=== PATIENT | female | born 2000 | race Caucasian/White ===

== ENCOUNTER 2019-03-09 14:39 | Emergency (ER) | payer OTHER, SELFPAY ==
[2019-03-09 14:54] VITALS: BP 113/75; PULSE 75; RESP 16; TEMP 36.8; O2SAT 99
[2019-03-09] MEDS: ACETAMINOPHEN 325 MG TABLET 975 MG PO (15:42)
[2019-03-09] MEDS: IBUPROFEN 400 MG TABLET 800 MG PO (15:42)
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
[2019-03-09 17:01] VITALS: BP 98/65; PULSE 62; RESP 16
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
== END 2019-03-09 17:01 | disposition home or self-care (01) ==
PROVIDERS: Emergency Provider Nurse Practitioner Family; PCP Pediatrics
DX: M54.5 Low back pain (principal); M54.2 Cervicalgia; V89.2XXA Person injured in unspecified motor-vehicle accident, traffic, initial encounter
CPT/HCPCS: 72070; 72100; 99283; 99284

== ENCOUNTER → 2022-06-11 13:07 | Outpatient (CLI) | payer OTHER, SELFPAY ==
[2022-06-11 20:11] LABS: Urine N gonorrhoeae NOT DETECTED
[2022-06-11 20:13] LABS: Urine Chlamydia NOT DETECTED
== END ==
PROVIDERS: Visit Provider Family Medicine
DX: Z11.3 Encounter for screening for infections with a predominantly sexual mode of transmission (principal); Z11.8 Encounter for screening for other infectious and parasitic diseases; Z36.9 Encounter for antenatal screening, unspecified; Z3A.08 8 weeks gestation of pregnancy
CPT/HCPCS: 87491; 87591

== ENCOUNTER → 2022-07-16 11:49 | Outpatient (CLI) | payer OTHER, SELFPAY ==
[2022-07-16 12:19] LABS: Add Manual Diff / Slide Review NO; Basophils Absolute Auto 0 /uL (0-100); Basophils Percent Auto 0.4 % (0-2); Eosinophils Absolute Auto 100 /uL (0-450); Eosinophils Percent Auto 0.6 % (2-4); Hematocrit 34.7 % (36-46); Hemoglobin 12.1 g/dL (12.0-16.0); Lymphocytes Absolute Auto 1800 /uL (1100-4500); Lymphocytes Percent Auto 20.4 % (25-40); Mean Corpuscular HGB Conc 34.9 % (30-36); Mean Corpuscular Hemoglobin 30.6 PG (26-34); Mean Corpuscular Volume 87.6 fL (80-100); Monocytes Absolute Auto 500 /uL (0-900); Monocytes Percent Auto 5.6 % (3-14); Neutrophils Absolute Auto 6500 /uL (1500-7000); Platelet Count 246 X10^3/uL (150-400); Red Blood Cell Count 3.96 X10^6/uL (4.0-5.2); Red Cell Distribution Width 13.3 % (11.6-14.8); White Blood Cell Count 8.9 X10^3/uL (4.5-11.0)
[2022-07-16 13:16] LABS: Hepatitis B Surface Antigen NEGATIVE s/c (NEGATIVE); Rubella Antibody IgG 11.3 IU/mL (>15)
[2022-07-16 13:33] LABS: HIV 1 & 2 Ab/Ag 4th Gen Combo NEGATIVE (NEGATIVE); Hep C Virus Ab w/Reflex Quant NEGATIVE s/c (NEGATIVE)
[2022-07-16 13:55] LABS: Appearance Urine UA CLEAR; Bilirubin Urine UA NEGATIVE (NEGATIVE); Color Urine UA YELLOW; Glucose Urine UA NEGATIVE (Negative); Ketones Urine UA NEGATIVE (NEGATIVE); Leukocyte Esterase Urine UA NEGATIVE (NEGATIVE); Nitrite Urine UA NEGATIVE (Negative); Occult Blood Urine UA NEGATIVE (Negative); Protein Urine UA NEGATIVE (Negative); Specific Gravity Urine UA <=1.005 (1.000-1.035); Urobilinogen Urine UA 0.2 E.U./dL (0.2)
[2022-07-16 13:57] LABS: pH Urine UA 5.5 (4.5-8.0)
[2022-07-17 05:53] LABS: RPR Screen Non Reactive (Non Reactive)
[2022-07-17 08:13] LABS: Varicella IgG Antibody 509 index (Immune >165)
== END ==
PROVIDERS: Referring Provider Family Medicine; Visit Provider Family Medicine
DX: Z34.81 Encounter for supervision of other normal pregnancy, first trimester (principal); Z34.01 Encounter for supervision of normal first pregnancy, first trimester; Z87.730 Personal history of (corrected) cleft lip and palate; Z3A.10 10 weeks gestation of pregnancy
CPT/HCPCS: 36415; 80055; 81003; 86787; 86803; 86850; 86900; 86901; 87086; 87389

== ENCOUNTER 2022-08-14 07:46 | Emergency (ER) | payer OTHER, SELFPAY ==
[2022-08-14 07:50] VITALS: BP 106/51; PULSE 70; RESP 16; TEMP 36.8; O2SAT 100; BMI 27.1
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
== END 2022-08-14 08:28 | disposition home or self-care (01) ==
PROVIDERS: Emergency Provider Emergency Medicine
DX: O26.92 Pregnancy related conditions, unspecified, second trimester (principal); H72.92 Unspecified perforation of tympanic membrane, left ear; Z3A.18 18 weeks gestation of pregnancy
CPT/HCPCS: 81003; 99281; 99282

== ENCOUNTER → 2022-09-02 14:17 | Outpatient (CLI) | payer OTHER, SELFPAY ==
--- NOTE | 2022-09-02 14:18 | DI.US.S_ITS ---
PROCEDURE: US OB >= 14 WEEKS FETUS INDICATIONS: 20 week anatomy OUTSIDE/PRIOR DATING DATA: Last menstrual period (LMP): April 08, 2022. LMP-based estimated date of delivery ([place]): January 13, 2023. First dating scan (date and location): June 11, 2022. Estimated date of delivery ([place]) from first dating scan: January 19, 2023. The calculations are made using the ultrasound ALY of January 19, 2023. TECHNIQUE: Real-time scanning was performed of the fetus, with image documentation and biometric measurements. Endovaginal scanning: Not performed COMPARISON: None. FINDINGS: General: A single living intrauterine gestation is present. Presentation: Vertex. Placenta: Placental position is anterior , without previa. Amniotic fluid index: 14.4 cm, normal range is 5-24 cm. Single deepest vertical pocket is 4.3 cm. heart rate: 145 beats per minute. Maternal cervical canal: 4.7 cm long. Normal lower limit is 2.5 cm. biometrics: Biparietal diameter: 4.9 cm, 20 weeks and 5 days Head circumference: 18.2 cm, 20 weeks and 4 days Abdominal circumference: 15.6 cm, 20 weeks and 5 days Femur length: 3.2 cm, 20 weeks and 0 days Clinically estimated gestational age: Not calculated Composite gestational age from present scan: 20 weeks and 4 days Estimated weight and percentile: 355 g which correlates with the 64th percentile Anatomic survey: Neuro: Ventricles are non-dilated at less than 10 mm. Cisterna magna is normal at 3-11 mm. Cerebellum is normal in size and morphology. Nuchal skin fold: Normal at less than 6 mm between 14-21 weeks gestational age. Face: Nose and lips, facial profile are normal. Spine: No evidence for spina bifida. Heart: 4-chambered heart is present, with normal ventricular outflow tracts. Diaphragm: Diaphragm is intact. Stomach: Left-sided stomach is present. Kidneys: No hydronephrosis. Normal is less than 5 mm in 2nd trimester, less than 7 mm in 3rd trimester. Cord: 3-vessel cord has orthotopic insertion. Bladder: Normal in size. Extremities: All 4 extremities identified. IMPRESSION: Single living intrauterine gestation with estimated sonographic gestational age of approximately 20 weeks and 4 days. Normal interval growth has occurred. Estimated weight of approximately 355 g which correlates with the 64th percentile based off gestational age. Normal second-trimester anatomy screening survey. We strive to produce accurate, complete, and clear reports of imaging services. To assist us in improving patient care, this report was composed using standard report templates and voice recognition software. Therefore, it may contain abnormal punctuation, insertions and/or omissions. Occasional wrong-word or sound-alike substitutions may occur. Though we review the report and make efforts to correct it, we do recommend that the report be read carefully in proper context to recognize any text inaccuracies. Dictated by: Waqas Stinson M.D. on 09/02/2022 at 16:33 Approved by: Waqas Stinson M.D. on 09/02/2022 at 16:37
== END ==
PROVIDERS: Referring Provider Family Medicine; Visit Provider Family Medicine
DX: Z34.02 Encounter for supervision of normal first pregnancy, second trimester (principal); Z3A.20 20 weeks gestation of pregnancy
CPT/HCPCS: 76801; 76811

== ENCOUNTER → 2022-10-31 10:35 | Outpatient (CLI) | payer OTHER, SELFPAY ==
[2022-10-31 12:26] LABS: Add Manual Diff / Slide Review NO; Basophils Absolute Auto 0 /uL (0-100); Basophils Percent Auto 0.2 % (0-2); Eosinophils Absolute Auto 0 /uL (0-450); Eosinophils Percent Auto 0.4 % (2-4); Hematocrit 27.3 % (36-46); Hemoglobin 9.7 g/dL (12.0-16.0); Lymphocytes Absolute Auto 1500 /uL (1100-4500); Lymphocytes Percent Auto 17.3 % (25-40); Mean Corpuscular HGB Conc 35.3 % (30-36); Mean Corpuscular Hemoglobin 30.1 PG (26-34); Mean Corpuscular Volume 85.1 fL (80-100); Monocytes Absolute Auto 600 /uL (0-900); Monocytes Percent Auto 6.5 % (3-14); Neutrophils Absolute Auto 6700 /uL (1500-7000); Neutrophils Percent Auto 75.6 % (50-75); Platelet Count 276 X10^3/uL (150-400); Red Blood Cell Count 3.21 X10^6/uL (4.0-5.2); Red Cell Distribution Width 12.9 % (11.6-14.8); White Blood Cell Count 8.9 X10^3/uL (4.5-11.0)
[2022-10-31 13:11] LABS: GTT (PREG) 1 Hour PP 50gm Dose 103 mg/dL (76-139)
== END ==
PROVIDERS: Referring Provider Family Medicine; Visit Provider Family Medicine
DX: Z34.01 Encounter for supervision of normal first pregnancy, first trimester (principal)
CPT/HCPCS: 36415; 82950; 85025; 86850

== ENCOUNTER 2022-11-17 16:25 | Outpatient (CLI) | payer OTHER, SELFPAY ==
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
== END 2022-11-17 17:10 | disposition home or self-care (01) ==
LOC: OB 11-19 12:50
PROVIDERS: Referring Provider Family Medicine; Visit Provider Family Medicine
DX: Z03.71 Encounter for suspected problem with amniotic cavity and membrane ruled out (principal); O26.893 Other specified pregnancy related conditions, third trimester; Z3A.31 31 weeks gestation of pregnancy; N89.8 Other specified noninflammatory disorders of vagina
CPT/HCPCS: 59025; 84112; G0378; G0379

== ENCOUNTER → 2022-12-19 12:08 | Outpatient (CLI) | payer OTHER, SELFPAY ==
[2022-12-20 11:41] LABS: Strep Grp B PCR NEG for Grp B Strep
== END ==
PROVIDERS: Visit Provider Family Medicine
DX: Z34.01 Encounter for supervision of normal first pregnancy, first trimester (principal)
CPT/HCPCS: 87653

== ENCOUNTER 2023-01-11 19:52 | Observation (INO) | payer OTHER, SELFPAY ==
[2023-01-11 20:24] VITALS: BP 123/85
[2023-01-11] MEDS: miSOPROStoL 25 MCG TABLET PO (20:54)
[2023-01-11 21:50] LABS: Add Manual Diff / Slide Review NO; Basophils Absolute Auto 0 /uL (0-100); Basophils Percent Auto 0.4 % (0-2); Eosinophils Absolute Auto 0 /uL (0-450); Eosinophils Percent Auto 0.3 % (2-4); Hematocrit 29.1 % (36-46); Hemoglobin 9.8 g/dL (12.0-16.0); Lymphocytes Absolute Auto 2000 /uL (1100-4500); Lymphocytes Percent Auto 22.9 % (25-40); Mean Corpuscular HGB Conc 33.7 % (30-36); Mean Corpuscular Hemoglobin 26.3 PG (26-34); Mean Corpuscular Volume 78.1 fL (80-100); Monocytes Absolute Auto 600 /uL (0-900); Monocytes Percent Auto 7.4 % (3-14); Neutrophils Absolute Auto 6100 /uL (1500-7000); Platelet Count 288 X10^3/uL (150-400); Red Blood Cell Count 3.72 X10^6/uL (4.0-5.2); Red Cell Distribution Width 15.8 % (11.6-14.8); White Blood Cell Count 8.8 X10^3/uL (4.5-11.0)
[2023-01-12] MEDS: miSOPROStoL 25 MCG TABLET PO (02:17)
--- NOTE | 2023-01-12 08:08 | PM.OBHP.IH.1 ---
OB HPI Date/Time Date of admission: 01/11/23 Date Patient Seen: 01/12/23 History of Present Condition Chief complaint: induction ALY Calculator Estimated Delivery Date Method Current WG Current Estimate 01/19/23 Manual 39w 0d Final ALY - AMY Other Estimates 01/13/23 LMP (Certain) 39w 6d 01/19/23 Ultrasound #1 39w 0d 01/19/23 Ultrasound #2 39w 0d Estimated Gestational Age (weeks): 39w0d : 1 Para: 0 Narrative: 22yo at 39w0d here for elective IOL. She denies any vaginal bleeding or LOF. She had some cramping overnight, but no strong contractions. She is feeling her baby move regularly. She had no complications with her . care: good care, initiated at week # (6) and pounds weight gain (24) Dating criteria OB: based on 1st trimester US only Ultrasounds: normal 1st trimester US and normal mid trimester US Obstetrical complications: none Medical complications OB: none Indications Indication for induction OB: other (elective) Preadmission Labs Last OB Lab Results: Blood Type B Positive 01/11/23 21:30 Antibody Screen Negative 01/11/23 21:30 Hematocrit 29.1 % (36-46) L 01/11/23 21:30 Hemoglobin 9.8 g/dL (12.0-16.0) L 01/11/23 21:30 Hepatitis B Surface Antigen Negative s/c (NEGATIVE) 07/16/22 11:56 Hepatitis C Antibody Negative s/c (NEGATIVE) 07/16/22 11:56 Rubella Antibody 11.3 IU/mL (>15) L 07/16/22 11:56 Varicella-Zoster IgG Antibody 509 index (Immune >165) 07/16/22 11:56 Glucose 1 Hour 103 mg/dL (76-139) 10/31/22 10:44 Group B Streptococcus (PCR) Neg for grp b strep 12/19/22 12:08 -: Urine: negative Genetic Screens: Cell-free DNA: Normal External Labs -: Urine: negative Evaluation Evaluation Baseline heart rate: 130 Variability: Moderate (11-25) monitor accelerations: Present Monitor Decelerations: Absent Status: Category l Dilation (cm): 1.5 Effacement (%): 75 Dilation: 1-2 cm Effacement: 60-70% station: -1 Position of cervix: mid Consistency: soft Elliott score: 8 PFSH Medical History Bilateral cleft of primary palate COVID (~2021) Headache Painful menstrual periods (~2010) Vision disorder Surgical History Anesthesia H/O bone graft H/O removal of cyst History of palate surgery [place] teeth extracted Family History Grandmother Hypertension Father Family estrangement Overdose Mother Facial tic Social History marital status: unmarried,living together number of children: 0 household members: significant other lives independently: Yes caregiver/support person: No housing: apartment pets and animals: Yes (dogs) education level: college occupational status: employed current occupational exposures/hazards: No special dom needs: No travel history: over 6 months ago other: Planning to move to [place] in October. seatbelt use: always helmet use: No (counseled to wear helmet when skiing) water heater temp set < 120 deg: Yes working smoke detector in home: Yes fire extinguisher in home: Yes carbon monox detector in home: Yes firearms in home: No do you feel safe at home: Yes in current or past relationships, have you been: other Smoking Status: Never smoker second hand exposure: Yes (s/o vapes) alcohol intake: former substance use type: does not use during the past year weight has: remained stable well-balanced diet: about half the time daily servings fruits/ve-4 caffeine: Yes (aware of 200mg limit) Type(s) of exercise: walking and weight lifting additional social history: Pt's S/O had initially been pressuring her to terminate the , which she never wanted to do. States that she had a long talk with him last night and that he has changed his mind and is now ready to step up and support her and the baby. They are planning to move to [place], [place] in October when he has orders to a new duty station. Meds Home Medications and Allergies Allergies Allergy/AdvReac Type Severity Reaction Status Date / Time No Known Drug Allergies Allergy Verified 01/11/23 20:30 OB Exam Resp Effort & Inspection: normal respiratory effort Auscultation: clear to auscultation bilaterally Cardio Rate: regular rate Rhythm: regular rhythm Heart Sounds: S1 normal, S2 normal and no murmurs GI Inspection: non-distended Palpation: Yes soft and No tender Presentation: vertex Estimated Weight (lbs): 7 Objective Labs 01/11/23 21:30 Labs: Laboratory Results - last 24 hr 01/11/23 21:30 WBC 8.8 RBC 3.72 L Hgb 9.8 L Hct 29.1 L MCV 78.1 L MCH 26.3 MCHC 33.7 RDW 15.8 H Plt Count 288 Neut % (Auto) 69.0 Lymph % (Auto) 22.9 L [place] % (Auto) 7.4 Eos % (Auto) 0.3 L Baso % (Auto) 0.4 Neut # (Auto) 6100 Lymph # (Auto) 2000 [place] # (Auto) 600 Eos # (Auto) 0 Baso # (Auto) 0 Blood Type B Positive Antibody Screen Negative Assessment and Plan Assessment and Plan Assessment and Plan narrative: 22yo at 39w0d here for elective IOL. GBS negative, Rh positive. No significant complications with . Received cytotec overnight x 2, third dose delayed due to staffing. Pt with cervical change, Elliott now 8. - Anticipate - Plan to start pitocin when staffing allows, titrate as tolerated - GBS negative, no prophylaxis indicated - FHT reassuring - Epidural for pain control when desired
== END 2023-01-12 14:20 | disposition home or self-care (01) ==
PROVIDERS: Admitting Provider Family Medicine; PCP Family Medicine; Visit Provider Family Medicine
DX: Z34.03 Encounter for supervision of normal first pregnancy, third trimester (principal); Z3A.39 39 weeks gestation of pregnancy
CPT/HCPCS: 36415; 59050; 59200; 85025; 86850; 86900; 86901; 96360; G0378; G0379

== ENCOUNTER 2023-01-18 20:05 | Observation (INO) | payer OTHER, SELFPAY ==
[2023-01-18 20:30] VITALS: BP 120/74
--- NOTE | 2023-01-18 20:53 | P.TNLD_ITS ---
Visit Information Visit Information Date of evaluation: 01/18/23 Primary OB Provider: Valery Garrison On-call OB Provider: Vidhi Herbert Reason for Evaluation: Yes non-stress test non-stress test reason: decreased movement Comments/Additional reasons for admission: 22YO @ 39wks 6 days here for evaluation of decreased FM and possible leaking of fluid. Has felt 4 movements in the last several hours and is worried. No cramping or vaginal bleeding. Endorces possible leaking of watery fluid when asked. Routine PN care w/ . Has her next appointment in 2 days. Vital Signs Vital Signs: Vital Signs - 8 hr 01/18/23 20:30 Blood Pressure 120/74 HR- 85bpm T- 36.2C Temporal PFSH Medical History Headache COVID (~2021) Painful menstrual periods (~2010) Bilateral cleft of primary palate Vision disorder Surgical History Anesthesia H/O bone graft [place] teeth extracted H/O removal of cyst History of palate surgery Family History Grandmother Hypertension Father Family estrangement Overdose Mother Facial tic Social History marital status: unmarried,living together number of children: 0 household members: significant other lives independently: Yes caregiver/support person: No housing: apartment pets and animals: Yes (dogs) education level: college occupational status: employed current occupational exposures/hazards: No special dom needs: No travel history: over 6 months ago other: Planning to move to [place] in October. seatbelt use: always helmet use: No (counseled to wear helmet when skiing) water heater temp set < 120 deg: Yes working smoke detector in home: Yes fire extinguisher in home: Yes carbon monox detector in home: Yes firearms in home: No do you feel safe at home: Yes in current or past relationships, have you been: other Smoking Status: Never smoker second hand exposure: Yes (s/o vapes) alcohol intake: former substance use type: does not use during the past year weight has: remained stable well-balanced diet: about half the time daily servings fruits/ve-4 caffeine: Yes (aware of 200mg limit) Type(s) of exercise: walking and weight lifting additional social history: Pt's S/O had initially been pressuring her to terminate the , which she never wanted to do. States that she had a long talk with him last night and that he has changed his mind and is now ready to step up and support her and the baby. They are planning to move to [place], [place] in October when he has orders to a new duty station. Exam Vital Signs (past 8 hours): - 01/18/23 20:30 Blood Pressure 120/74 Evaluation Evaluation Baseline heart rate: 135 Variability: Moderate (11-25) monitor accelerations: Present Monitor Decelerations: Absent Contraction Frequency (minutes): 7 Uterine Contraction Intensity: Mild (not felt by patient) Category of Tracing: Reactive Non-invasive Membranes Rupture Test: negative Diagnosis, Plan/Disposition Final Diagnosis (1) Decreased movement: Status: Acute (2) Suspected problem with amniotic cavity and membrane not found: Status: Acute Plan/Disposition Plan: Patient reassured of well-being. All concerns addressed and patient feels comfortable to return home. Follow-up with in clinic as previously scheduled. OB Disposition: home
== END 2023-01-18 20:58 | disposition home or self-care (01) ==
PROVIDERS: Admitting Provider Family Medicine; PCP Family Medicine; Referring Provider Family Medicine; Visit Provider Family Medicine
DX: Z03.71 Encounter for suspected problem with amniotic cavity and membrane ruled out (principal); O36.8130 Decreased fetal movements, third trimester, not applicable or unspecified; Z3A.39 39 weeks gestation of pregnancy
CPT/HCPCS: 59025; 84112; G0378; G0379

== ENCOUNTER 2023-01-19 10:35 | Inpatient (IN) | payer OTHER, SELFPAY ==
[2023-01-19 11:32] LABS: Add Manual Diff / Slide Review NO; Basophils Absolute Auto 100 /uL (0-100); Basophils Percent Auto 0.7 % (0-2); Eosinophils Absolute Auto 100 /uL (0-450); Eosinophils Percent Auto 0.6 % (2-4); Hemoglobin 10.6 g/dL (12.0-16.0); Lymphocytes Absolute Auto 1900 /uL (1100-4500); Lymphocytes Percent Auto 17.6 % (25-40); Mean Corpuscular HGB Conc 34.1 % (30-36); Mean Corpuscular Hemoglobin 26.4 PG (26-34); Mean Corpuscular Volume 77.6 fL (80-100); Monocytes Absolute Auto 800 /uL (0-900); Neutrophils Absolute Auto 7800 /uL (1500-7000); Neutrophils Percent Auto 73.1 % (50-75); Platelet Count 293 X10^3/uL (150-400); Red Blood Cell Count 3.99 X10^6/uL (4.0-5.2); Red Cell Distribution Width 15.5 % (11.6-14.8); White Blood Cell Count 10.6 X10^3/uL (4.5-11.0)
[2023-01-19] MEDS: OXYTOCIN PREMIX 30 UNIT/500 ML PLAST..BAG IV (12:00)
[2023-01-19 12:04] VITALS: BP 104/77
--- NOTE | 2023-01-19 13:22 | PM.OBHP.IH.1 ---
OB HPI Date/Time Date of admission: 01/19/23 Date Patient Seen: 01/19/23 History of Present Condition Chief complaint: NST ALY Calculator Estimated Delivery Date Method Current WG Current Estimate 01/19/23 Manual 40w 0d Final ALY - AMY Other Estimates 01/13/23 LMP (Certain) 40w 6d 01/19/23 Ultrasound #1 40w 0d 01/19/23 Ultrasound #2 40w 0d Estimated Gestational Age (weeks): 40w0d : 1 Para: 0 Narrative: 22yo at 40w0d here for elective IOL. She denies any vaginal bleeding or LOF. She had some cramping overnight, but no strong contractions. She is feeling her baby move regularly. She had no complications with her . care: good care, initiated at week # (6) and pounds weight gain (24) Dating criteria OB: based on 1st trimester US only Ultrasounds: normal 1st trimester US and normal mid trimester US Obstetrical complications: none Medical complications OB: none Preadmission Labs Last OB Lab Results: Blood Type B Positive 01/19/23 11:15 Antibody Screen Negative 01/19/23 11:15 Hematocrit 31.0 % (36-46) L 01/19/23 11:15 Hemoglobin 10.6 g/dL (12.0-16.0) L 01/19/23 11:15 Hepatitis B Surface Antigen Negative s/c (NEGATIVE) 07/16/22 11:56 Hepatitis C Antibody Negative s/c (NEGATIVE) 07/16/22 11:56 Rubella Antibody 11.3 IU/mL (>15) L 07/16/22 11:56 Varicella-Zoster IgG Antibody 509 index (Immune >165) 07/16/22 11:56 Glucose 1 Hour 103 mg/dL (76-139) 10/31/22 10:44 Group B Streptococcus (PCR) Neg for grp b strep 12/19/22 12:08 -: Urine: negative Genetic Screens: Cell-free DNA: Normal External Labs -: Urine: negative Evaluation Evaluation Baseline heart rate: 130 Variability: Moderate (11-25) monitor accelerations: Present Monitor Decelerations: Absent Contraction Frequency (minutes): 4 Status: Category l Dilation (cm): 2 Effacement (%): 80 Dilation: 1-2 cm Effacement: >/=80% station: -2 Position of cervix: mid Consistency: soft Elliott score: 8 PFSH Medical History Headache COVID (~2021) Painful menstrual periods (~2010) Bilateral cleft of primary palate Vision disorder Surgical History Anesthesia H/O bone graft [place] teeth extracted H/O removal of cyst History of palate surgery Family History Grandmother Hypertension Father Family estrangement Overdose Mother Facial tic Social History marital status: unmarried,living together number of children: 0 household members: significant other lives independently: Yes caregiver/support person: No housing: apartment pets and animals: Yes (dogs) education level: college occupational status: employed current occupational exposures/hazards: No special dom needs: No travel history: over 6 months ago other: Planning to move to [place] in October. seatbelt use: always helmet use: No (counseled to wear helmet when skiing) water heater temp set < 120 deg: Yes working smoke detector in home: Yes fire extinguisher in home: Yes carbon monox detector in home: Yes firearms in home: No do you feel safe at home: Yes in current or past relationships, have you been: other Smoking Status: Never smoker second hand exposure: Yes (s/o vapes) alcohol intake: former substance use type: does not use during the past year weight has: remained stable well-balanced diet: about half the time daily servings fruits/ve-4 caffeine: Yes (aware of 200mg limit) Type(s) of exercise: walking and weight lifting additional social history: Pt's S/O had initially been pressuring her to terminate the , which she never wanted to do. States that she had a long talk with him last night and that he has changed his mind and is now ready to step up and support her and the baby. They are planning to move to [place], [place] in October when he has orders to a new duty station. Meds Home Medications and Allergies Home Medications Medication Instructions Recorded Confirmed Type No Known Home Medications 01/19/23 01/19/23 History Allergies Allergy/AdvReac Type Severity Reaction Status Date / Time No Known Drug Allergies Allergy Verified 01/11/23 20:30 OB Exam Resp Effort & Inspection: normal respiratory effort Auscultation: clear to auscultation bilaterally Cardio Rate: regular rate Rhythm: regular rhythm Heart Sounds: S1 normal, S2 normal and no murmurs GI Inspection: non-distended Palpation: Yes soft and No tender Presentation: vertex Objective Labs 01/19/23 11:15 Labs: Laboratory Results - last 24 hr 01/19/23 11:15 WBC 10.6 RBC 3.99 L Hgb 10.6 L Hct 31.0 L MCV 77.6 L MCH 26.4 MCHC 34.1 RDW 15.5 H Plt Count 293 Neut % (Auto) 73.1 Lymph % (Auto) 17.6 L [place] % (Auto) 8.0 Eos % (Auto) 0.6 L Baso % (Auto) 0.7 Neut # (Auto) 7800 H Lymph # (Auto) 1900 [place] # (Auto) 800 Eos # (Auto) 100 Baso # (Auto) 100 Blood Type B Positive Antibody Screen Negative Assessment and Plan Assessment and Plan Assessment and Plan narrative: 22yo at 39w0d here for elective IOL. GBS negative, Rh positive. No significant complications with . Elliott score 8. Initiated on pitocin. - Anticipate - Continue pitocin, titrate as tolerated - Plan for AROM once descent - GBS negative, no prophylaxis indicated - FHT reassuring - Epidural for pain control when desired
--- NOTE | 2023-01-19 16:57 | PM.AN.REGBLK ---
Regional Block Pre-procedure Procedure: Continuous Lumbar Epidural for L&D Attending OB provider: Valery Garrison PMH/ROS narrative: 22yo at 40w0d for elective IOL, no complications. ASA Class: II Labs: Hct 31.0 % (36-46) L 01/19/23 11:15 Plt Count 293 X10^3/uL (150-400) 01/19/23 11:15 Medications: Current Medications Generic Name Dose Route Start Last Admin Trade Name Freq PRN Reason Stop Dose Admin Calcium Carbonate 1,000 mg 01/19/23 10:47 Calcium Carbonate 500 Mg Tab PO Q4HR PRN Dyspepsia Carboprost Tromethamine 250 mcg 01/19/23 10:47 Carboprost 250 Mcg/Ml Ampul IM Q90M PRN Bleeding Fentanyl 50 mcg 01/19/23 10:47 Fentanyl 100 Mcg/2 Ml Inj IV Q1H PRN Pain, Moderate (4-6) Tranexamic Acid 1,000 mg/ 100 mls @ 200 mls/hr 01/19/23 10:47 Sodium Chloride IV NOW PRN Bleeding Oxytocin/Lactated Ringer's 30 unit in 500 mls @ 2 mls/hr 01/19/23 11:00 01/19/23 12:00 Oxytocin Premix IV 2 milliunit/min TITRATE EMMANUEL 2 mls/hr Administration Protocol 2 MILLIUNIT/MIN Lactated Ringer's 1,000 mls @ 100 mls/hr 01/19/23 11:00 Lactated Ringers IV CONT EMMANUEL Oxytocin/Lactated Ringer's 30 unit in 500 mls @ 200 mls/hr 01/19/23 10:47 Oxytocin Premix IV CONT PRN Bleeding Protocol Lidocaine HCl 20 ml 01/19/23 10:47 Lidocaine 1% 20 Ml INJ INTRA-OP PRN Post Delivery Methylergonovine Maleate 0.2 mg 01/19/23 10:47 Methylergonovine 0.2 Mg Tablet PO Q6HR PRN Heavy Bleeding Methylergonovine Maleate 0.2 mg 01/19/23 10:47 Methylergonovine 0.2 Mg/Ml Vial IM NOW PRN Bleeding Misoprostol 400 mcg 01/19/23 10:47 Misoprostol 200 Mcg Tablet SL NOW PRN Bleeding Misoprostol 800 mcg 01/19/23 10:47 Misoprostol 200 Mcg Tablet PA NOW PRN Bleeding Naloxone HCl 0.2 mg 01/19/23 10:47 Naloxone 0.4 Mg/Ml Vial IV Q2MIN PRN Opiate Reversal Ondansetron HCl 4 mg 01/19/23 10:47 Ondansetron 4 Mg/2 Ml Inj IV Q4HR PRN Nausea And Vomiting Oxytocin 10 unit 01/19/23 10:47 Oxytocin 10 Unit/Ml Vial IM NOW PRN Bleeding Zolpidem Tartrate 5 mg 01/19/23 10:47 Zolpidem 5 Mg Tablet PO BEDTIME PRN Sleep Allergies: Allergies Allergy/AdvReac Type Severity Reaction Status Date / Time No Known Drug Allergies Allergy Verified 01/11/23 20:30 Procedure Insertion date: 01/19/23 Insertion time: 17:14 Prep/Local: betadine x3 and 1% lidocaine Interspace: L3-4 Patient position: sitting Needle: 18 gauge Hustead (CSE: 27g Pencan through Hustead, clear CSF, 2.5mg MPF bupiv) Loss of resistance with: saline LEXIS at (cm): 5 Catheter placed at SKIN (cm): 11 Catheter in SPACE (cm): 6 Insertion: No CSF, No Blood, No Paresthesia with insertion, No Paresthesia with injection and No Test dose reaction Initial Medications TEST DOSE time: 17:17 TEST DOSE: 1.5% lidocaine with epinephrine 1:200k (mL): 3 BOLUS DOSE time: 17:23 BOLUS DOSE (mL): 4 BOLUS DOSE med: other (infusate) Infusion INFUSION: 0.125% bupivacaine and with fentanyl 2 mcg/mL Initial rate (mL/hr): 8 Subsequent interventions: PCEA 8+4@15min. Post-procedure Anesthesia time START: 16:58 Anesthesia time END: 23:58 Post-procedure Anesthesia Assessment: Yes CV function: HR/BP stable, Yes Resp function: RR/sat/airway adequate, Yes Post-op hydration adequate, Yes Pain control adequate, Yes Nausea & vomiting absent, Yes Temperature > 36 C, Yes Mental status appropriate and No Anesthesia complications
--- NOTE | 2023-01-19 17:36 | PM.OBPNLAB ---
Date/Time Date Patient Seen: 01/19/23 Pain Control Pain control: epidural Pelvic Exam Dilation (cm): 2 Effacement (%): 80 station: -1 Amniotic membrane status: Ruptured Comments: After informed consent, AROM performed with clear fluid present Contractions Contractions on admission: none Monitor mode: External Pitocin rate (mU/min): 16 Contraction frequency (min): 2 Contraction pattern: Regular Status status: Category l Heart Rate Baseline: 140 Monitor Accelerations: Present Monitor Decelerations: Absent Monitor Variability: Moderate Assessment and Plan Comments: 22yo at 39w0d here for elective IOL. GBS negative, Rh positive. No significant complications with . Elliott score 8. On pitocin, minimal change thus far - AROM performed with clear fluid. - Anticipate - Continue pitocin, titrate as tolerated - Recheck cervix in 3hrs - GBS negative, no prophylaxis indicated - FHT reassuring - Epidural in place for pain control
[2023-01-19] MEDS: ONDANSETRON 4 MG/2 ML INJ IV (22:10)
[2023-01-20] MEDS: miSOPROStoL 200 MCG TABLET 400 MCG SL (00:12)
[2023-01-20] MEDS: miSOPROStoL 200 MCG TABLET 800 MCG PR (00:12)
--- NOTE | 2023-01-20 00:33 | PM.OBPRVD ---
Labor & Delivery Delivery date: 01/19/23 Intrapartal Events: None Cervical ripening method: none Induction method: per pitocin protocol Delivery augmentation: rupture of membranes Delivery monitor: external FHT and external uterine Route of delivery: Episiotomy description: None L&D Laceration Description: Perineal - 1st Degree Delivery repair: chromic Quantitative Blood Loss: 300 Anesthesia Type: Epidural Complications: Shoulder dystocia Narrative: PROCEDURE: at 40w0d presented for elective IOL and was admitted to Labor and Delivery. The patient progressed through the 1st stage over 7 hours. ROM occured at 17:32 with clear fluid. Pain was controlled with an epidural. The patient progressed through the 2nd stage over 25 minutes and delivered a viable female with APGARs 8/9 at 23:58 via . There was a brief shoulder dystocia, lasting 15 seconds, relieved with Rashaun. The cord was cut and clamped after it stopped pulsating. The placenta delivered with gentle cord traction, and appeared complete. The perineum and vagina were inspected with small 1st degree laceration repaired with 3-O Chromic for hemostasis. The pt had intermittent mild atony after delivery, despite pitocin, and 1000mcg of rectal cytotec was given with persistent good tone after. Needle and sponge counts were correct.? The vagina was inspected and no items were left in situ. Alicja was doing well with Yulia, her and her , Navjot, at bedside. PREPROCEDURE DIAGNOSIS: Intrauterine at 40w0d GBS negative RH positive POSTPROCEDURE DIAGNOSIS: Intrauterine at 40w0d, delivered Same as preprocedure Baby 1: gender: Female Presentation: vertex Position: Left Occiput Anterior Placenta delivery description: Spontaneous Cord Vessel Description: 3 Vessels score (1 min): 8 score (5 min): 9 weight: 8 lb 1.879 oz Plan for aftercare: Routine care
[2023-01-20] MEDS: ACETAMINOPHEN 325 MG TABLET 650 MG PO (02:52)
[2023-01-20] MEDS: IBUPROFEN 600 MG TABLET PO ×3 (02:52→15:11)
[2023-01-20] MEDS: PRENATAL VIT,CALC/IRON/FOLIC 1 TABLET 1 TAB PO (08:44)
[2023-01-20] MEDS: DOCUSATE 100 MG CAPSULE PO (08:45)
[2023-01-20] MEDS: FERROUS SULFATE 325 MG TABLET PO (08:45)
[2023-01-20 16:25] VITALS: BP 108/73; PULSE 69; RESP 16; TEMP 36.9
--- NOTE | 2023-01-20 18:44 | P.DS_ITS ---
Discharge Providers Provider Date of admission: 01/19/23 10:35 Discharge Date: 01/20/23 Primary care physician: Valery Garrison MD Consults: 01/21/23 00:31 Consult to [employer] Routine Comment: Discharge provider: Valery Garrison MD Summary Hospital Course Date Patient Seen: 01/21/23 Diagnoses: Intrauterine at 40w0d GBS negative RH positive Hospital Course: The pt presented for elective IOL. She received pitocin for induction. AROM was performed with clear fluid present. She progressed to complete and had an of a viable baby girl with brief shoulder dystocia resolved with Rashaun. A small first degree laceration was then repaired for hemostasis. , there were no complications. At the time of discharge she was voiding, ambulating, and passing flatus without difficulty. Her lochia was decreasing appropriately. Her pain was well controlled. She will f/u in 6 weeks for check. She was with good latch. She will f/u for 6wk check. Peripartum Data Delivery Method: Natural Vaginal Laceration Description: Perineal - 1st Degree Episiotomy description: None Procedures: Spontaneous vaginal delivery complications: none 1: Gender: Female Disposition of : home Time Spent with Patient Time attestation: Total time spent providing and/or coordinating discharge services: Objective Labs 01/19/23 11:15 Exam Vital Signs (past 8 hours): - 01/20/23 16:25 Temperature 98.5 F Pulse Rate 69 Respiratory Rate 16 Blood Pressure 108/73 Narrative Exam Narrative: Gen: NAD, sitting comfortably in bed, appears well CV: RRR, no murmurs Resp: clear to auscultation bilaterally Abd: soft, appropriately tender, fundus firm and below the umbilicus, nondistended Ext: no edema Discharge Plan Discharge Plan Patient Disposition: Home Discharge orders & Medications Prescriptions: New acetaminophen 325 mg Tablet 650 mg PO Q6HR PRN (Reason: Pain, Mild (1-3)) Qty: 30 0RF docusate sodium 100 mg Capsule 100 mg PO DAILY Qty: 30 0RF ferrous sulfate 325 mg (65 mg iron) Tablet 325 mg PO DAILY Qty: 30 0RF ibuprofen 600 mg Tablet 600 mg PO Q6HR PRN (Reason: Pain, Mild (1-3)) Qty: 30 0RF Follow up/Referrals: Valery Garrison MD [Primary Care Provider] - ( Appt w/ Dr. Garrison: Thursday, @ 4pm) Diet/Activity/Treatments Diet: Diet as Tolerated and Regular Skin/Wound/Dressing Care Report to your healthcare provider any signs of infection, such as:: chills, fever, increased pain and unusual drainage Visit Report/Discharge Packet Instructions: DI for Labor and Delivery, Vaginal Stand Alone Forms: Discharge: Care, Patient Portal/API, Stroke Signs & Symptoms Discharge Data Primary Care Provider: Valery Garrison Discharges patient from system. Discharge Date/Time: 01/20/23 19:32
== END 2023-01-20 19:32 | disposition home or self-care (01) | DRG 807 ==
PROVIDERS: Admitting Provider Family Medicine; PCP Family Medicine; Referring Provider Family Medicine; Visit Provider Family Medicine
DX: O70.0 First degree perineal laceration during delivery (principal); Z37.0 Single live birth; Z3A.40 40 weeks gestation of pregnancy; O36.8130 Decreased fetal movements, third trimester, not applicable or unspecified; Z3A.39 39 weeks gestation of pregnancy; O75.89 Other specified complications of labor and delivery
CPT/HCPCS: 36415; 59025; 59050; 59400; 84112; 85025; 86850; 86900; 86901; G0378; G0379; J2405; J2590; S0191